=== PATIENT | female | born 1985 | race Caucasian/White ===

== ENCOUNTER 2016-07-05 06:41 | Inpatient (IN) | payer BC ==
[2016-07-05] MEDS ORDERED: OBEPIDURAL* 250 ML ONE (15:53)
[2016-07-05 15:56] LABS: Hematocrit 36 % (35-47); Hemoglobin 11.7 g/dl (12.0-16.0); Mean Corpuscular HGB Conc 33 g/dl (31-36); Mean Corpuscular Hemoglobin 28 pg (27-31); Mean Corpuscular Volume 85 fL (80-97); Mean Platelet Volume 10 um3 (7.4-10.4); Red Blood Count 4.21 10^6/ul (4.0-5.4); Red Cell Distribution Width 14 % (10.5-15); White Blood Count 16.4 10^3/ul (3.5-10.8)
[2016-07-05] MEDS ORDERED: Famotidine TAB* 20 MG PO PRN (16:58)
[2016-07-05] MEDS ORDERED: Sodium Citrate/Citric Acid* 15 ML UDC PO PRN (16:58)
[2016-07-05] MEDS ORDERED: Phenylephrine IV* 40 MCG/ML 10 ML SYRINGE IV PUSH PRN ×2 (16:58)
[2016-07-05] MEDS ORDERED: OBEPIDURAL* 250 ML EPIDURAL SCH (17:00)
[2016-07-05] MEDS ORDERED: Vancomycin(*) 1,000 MG in NS 0.9% 250 ML* 250 ML IVPB ONE (19:54)
[2016-07-05] MEDS ORDERED: Gentamicin ADULT (*) 40 MG/ML VIAL IVPB SCH (20:00)
[2016-07-05] MEDS ORDERED: NS 0.9% 100 ML* 100 ML ONE (20:06)
[2016-07-05] MEDS ORDERED: Lidocaine 2% PF* 10 ML AMP ONE ×2 (20:06→20:49)
[2016-07-05] MEDS ORDERED: Gentamicin ADULT (*) 110 MG in NS 0.9% 100 ML* 100 ML IVPB ONE (20:15)
[2016-07-05] MEDS ORDERED: fentaNYL* 50 MCG/ML 2 ML VIAL (100 MCG VIAL) ONE (20:42)
[2016-07-05] MEDS ORDERED: Lidocaine 2% PF * 5 ML VIAL ONE (20:42)
[2016-07-05] MEDS ORDERED: OXYTOCIN* 10 UNITS/ML 1 ML VIAL ONE ×2 (20:54→20:55)
[2016-07-05] MEDS ORDERED: Ondansetron INJ* 2 MG/ML VIAL ONE (21:07)
[2016-07-05] MEDS ORDERED: Morphine PF AMP (0.5MG/ML)* 5 MG/10 ML AMP ONE (21:07)
[2016-07-05] MEDS ORDERED: Ondansetron INJ* 2 MG/ML VIAL IV PRN ×2 (21:15→21:21)
[2016-07-05] MEDS ORDERED: HYDROcodone/ACETAMIN 5-325 MG* 1 TAB PO PRN (21:15)
[2016-07-05] MEDS ORDERED: DiMENhydriNATE IV* 50 MG/ML VIAL IV PUSH PRN ×2 (21:15→21:21)
[2016-07-05] MEDS ORDERED: oxyCODONE TAB* 5 MG TAB PO PRN (21:15)
[2016-07-05] MEDS ORDERED: fentaNYL* 50 MCG/ML 2 ML VIAL (100 MCG VIAL) IV PRN (21:15)
[2016-07-05] MEDS ORDERED: Ketorolac INJ* 30 MG/ML 1 ML VIAL ONE (21:18)
[2016-07-05] MEDS ORDERED: Acetaminophen TAB* 325 MG PO PRN (21:21)
[2016-07-05] MEDS ORDERED: Naloxone* 0.4 MG/ML 1 ML VIAL IV PRN (21:21)
[2016-07-05] MEDS ORDERED: diPHENhydraMINE IV* 50 MG/ML 1 ml VIAL (BENADRYL) IV PRN (21:21)
[2016-07-05] MEDS ORDERED: oxyCODONE/Acetamin 5/325 MG* TAB PO PRN (21:21)
[2016-07-05] MEDS ORDERED: Naloxone* 2 MG in NS 0.9% 250 ML* 250 ML IV PRN (21:21)
[2016-07-05] MEDS ORDERED: Nalbuphine* 20 MG/ML 1 ML VIAL IV PRN (21:21)
[2016-07-05] MEDS ORDERED: Scopolamine 1.5 mg* PATCH TRANSDERM SCH (22:00)
[2016-07-05] MEDS ORDERED: Oxytocin in LR* 20 UNITS/1,000 ML BAG IVPB ONE (22:56)
[2016-07-05] MEDS: Cetirizine* 10 MG TAB PO SCH (23:11)
[2016-07-05] MEDS: Montelukast Sodium TAB* 10 MG PO SCH (23:11)
[2016-07-05] MEDS ORDERED: Dibucaine 1% 28.35 GM TUBE PR PRN (23:13)
[2016-07-05] MEDS ORDERED: Glycerin ADULT SUPP PR PRN (23:13)
[2016-07-05] MEDS ORDERED: Witch Hazel PAD* JAR TOPICAL PRN (23:13)
[2016-07-05] MEDS ORDERED: Oxytocin in LR* 20 UNITS/1,000 ML BAG IVPB SCH (23:45)
[2016-07-06] MEDS: Ketorolac INJ* 30 MG/ML 1 ML VIAL IV PRN ×3 (03:04→16:19)
[2016-07-06] MEDS: HYDROcodone/ACETAMIN 5-325 MG* 1 TAB PO PRN ×4 (05:53→21:33)
[2016-07-06 07:40] LABS: Hematocrit 27 % (35-47); Hemoglobin 8.8 g/dl (12.0-16.0); Mean Corpuscular HGB Conc 33 g/dl (31-36); Mean Corpuscular Hemoglobin 28 pg (27-31); Mean Corpuscular Volume 85 fL (80-97); Mean Platelet Volume 9 um3 (7.4-10.4); Red Blood Count 3.16 10^6/ul (4.0-5.4); Red Cell Distribution Width 14 % (10.5-15); White Blood Count 18.4 10^3/ul (3.5-10.8)
[2016-07-06] MEDS: Docusate CAP* 100 MG PO SCH ×3 (09:33→21:33)
[2016-07-06] MEDS: Simethicone TAB* 80 MG TAB.CHEW PO SCH ×4 (09:33→21:33)
[2016-07-06] MEDS: Ferrous Gluconate TAB* 324 MG TAB PO SCH ×2 (09:33→21:33)
--- NOTE | 2016-07-06 11:05 | OP ---
DATE OF OPERATION: 07/05/16 - ROOM #101 DATE OF : 85 SURGEON: Alondra Ricardo MD TRANSPORTATION OPERATIONS MANAGER: Trudy Dolan CM ANESTHESIOLOGIST: Luis Whittaker MD ANESTHESIA: Epidural PRE-OP DIAGNOSIS: Intrauterine at 41-1/7 weeks, category II heart tracing, remote from delivery. POST-OP DIAGNOSES: Intrauterine at 41-1/7 weeks, category II heart tracing, remote from delivery; delivered. OPERATIVE PROCEDURE: Primary low transverse section. ESTIMATED BLOOD LOSS: 500 cc. URINE OUTPUT: 500 cc. FLUIDS: 1700 cc of crystalloids. FINDINGS: Revealed a vertex male , with Apgars 9 at one minute and 9 at five minutes. Weight was 7 pounds and 3 ounces. No meconium. No nuchal cord, three- vessel cord, placenta intact, manual extraction. Normal 3-vessel cord, normal- appearing tubes and ovaries bilaterally, normal uterine cavity. COMPLICATIONS: None apparent. DISPOSITION: Stable to recovery room. DESCRIPTION OF PROCEDURE: The patient underwent re-dosing of epidural anesthesia. The abdomen was prepped and draped in a sterile standard fashion. The patient was identified with universal protocol for correct procedure, position, and patient. Anesthesia was tested repetitively until appropriate level was obtained. An incision was made two fingerbreadths above the pubic symphysis. This was carried down through to the fascia. The fascia was scored in the midline. The fascial incision was extended laterally and superiorly using curved Connor scissors. The fascia was from the rectus muscle bluntly and sharply, superiorly and inferiorly. The peritoneum was then entered bluntly. The peritoneal incision was extended bluntly. A bladder blade was inserted. Lower uterine segment was identified. An Allis was used to tent up on the lower uterine segment and incision was made with a scalpel. This was carried down through the membranes. The incision was then extended laterally and superiorly using bandage scissors. The infant was delivered, noted to be MICKEY. Head was delivered, anterior, then posterior shoulder delivered. Baby was vigorous, crying. Cord was clamped after a slight delay and then the cord was cut. Infant was handed off to awaiting metal extrusion supervisor. The appropriate cord blood was obtained. Placenta was then manually extracted. Noted to be intact 3-vessel cord. Uterus was exteriorized. Uterine cavity was wiped clean, noted to be free of any placental membranes or tissue. The uterine incision itself was clamped with broad Allis's and then reapproximated in 2 layers, first layer a running locked 0 Vicryl; second layer, running imbricated 0 Vicryl. The tubes and ovaries noted to have normal appearance. The uterus was returned intra-abdominally, colic gutters were lavaged. Hemostasis was assured of the hysterotomy site, the colic gutters after lavage. The peritoneum was clamped with Renee's and the peritoneum was then reapproximated using 3-0 Vicryl in a running fashion. Subfascial area was visualized, noted to be hemostatic and the fascia itself was reapproximated using 0 Vicryl x2 in a running fashion. Subcu was lavaged. Hemostasis assured. The midline was reapproximated of Camper's fascia and the skin itself was then reapproximated using 4-0 Monocryl in a subcuticular fashion. Mastisol and Steri's were applied. All sponge, instrument, and blade counts were correct throughout the case. The patient tolerated the procedure well and went to recovery room in stable condition. [id number]/[facility] #: [id number] HUMBERTO
[2016-07-06] MEDS: Montelukast Sodium TAB* 10 MG PO SCH (12:27)
[2016-07-06] MEDS ORDERED: Acetaminophen TAB* 325 MG PO PRN (13:21)
[2016-07-06] MEDS ORDERED: oxyCODONE/Acetamin 5/325 MG* TAB PO PRN ×2 (13:21)
[2016-07-06] MEDS: Cetirizine* 10 MG TAB PO SCH (21:33)
[2016-07-06] MEDS: Ibuprofen TAB* 600 MG PO PRN (21:34)
[2016-07-07] MEDS: HYDROcodone/ACETAMIN 5-325 MG* 1 TAB PO PRN ×6 (01:33→22:06)
[2016-07-07] MEDS: Ibuprofen TAB* 600 MG PO PRN ×4 (04:17→22:05)
[2016-07-07] MEDS: Ferrous Gluconate TAB* 324 MG TAB PO SCH ×2 (09:12→22:05)
[2016-07-07] MEDS: Docusate CAP* 100 MG PO SCH ×3 (09:12→22:05)
[2016-07-07] MEDS: Simethicone TAB* 80 MG TAB.CHEW PO SCH ×4 (09:12→22:05)
[2016-07-07] MEDS: Montelukast Sodium TAB* 10 MG PO SCH (09:16)
[2016-07-07] MEDS ORDERED: Cetirizine* 10 MG TAB PO SCH (23:00)
[2016-07-08] MEDS: HYDROcodone/ACETAMIN 5-325 MG* 1 TAB PO PRN ×2 (02:08→07:59)
[2016-07-08] MEDS: Ibuprofen TAB* 600 MG PO PRN ×2 (04:02→09:54)
[2016-07-08 08:02] VITALS: BP 121/74
[2016-07-08] MEDS: Montelukast Sodium TAB* 10 MG PO SCH (09:44)
[2016-07-08] MEDS: Ferrous Gluconate TAB* 324 MG TAB PO SCH (09:54)
[2016-07-08] MEDS: Docusate CAP* 100 MG PO SCH (09:54)
[2016-07-08] MEDS: Simethicone TAB* 80 MG TAB.CHEW PO SCH (09:55)
== END 2016-07-08 11:23 | disposition home or self-care (01) | DRG 540 ==
LOC: MCHOBOUT 06:41 → MCHOB 07:02
PROVIDERS: ADMIT Midwife; ATTEND Obstetrics & Gynecology
PROC: 10D00Z1 Extraction of Products of Conception, Low, Open Approach (ICD-10-PCS; principal; 2016-07-05 20:13)
DX: O76 Abnormality in fetal heart rate and rhythm complicating labor and delivery (principal); F32.9 Major depressive disorder, single episode, unspecified; O48.0 Post-term pregnancy; O99.344 Other mental disorders complicating childbirth; O90.81 Anemia of the puerperium; D64.9 Anemia, unspecified; Z3A.41 41 weeks gestation of pregnancy; Z37.0 Single live birth
CPT/HCPCS: 36415; 85025; 85027; 86850; 86900; 86901; A9270-GY; J1580; J1885; J2001; J2405; J2590; J3010; J3370

== ENCOUNTER 2016-07-13 09:20 | Emergency (ER) | payer BC ==
[2016-07-13 09:32] VITALS: BP 136/84
[2016-07-13] MEDS ORDERED: NS 0.9% 1000 ML* 2,000 ML IV ONE (09:52)
--- NOTE | 2016-07-13 15:48 | ED ---
Jun Brown Rebecca, scribed for Marcial Morocho MD on 07/13/16 at 0935 . ED Suture/Wound Check - HPI Summary HPI Summary: Pt is a 30 y/o F who presents to ED c/o pain and bleeding at the incision site of a recent . Pt had an unplanned 8 days ago (07/05/2016) without complications and was in the hospital 3 days post-op. Reports that last night she was getting in and out of bed often to check on her and that the wound began bleeding last night. Associated pain characterized as burning and is currently ranked 10/10, worse that it was post-op. Is treating pain with ice and Ibuprofen since prescribed [place] gave her HAs. Sx aggravated by ambulation, alleviated by Ibuprofen. Additionally c/o pus-like drainage ( "milky-red") from the incision, as well as rhinorrhea, cough (productive while in the shower) and wheezing since yesterday. Denies calf pain, edema, vomiting, constipation, sore throat, lightheadedness, dizziness or back pain. Wound was closed with dissolvable stitches and Steri-Strips. Was evaluated by ENGRAVER APPRENTICE DECORATIVE 3 days ago and the wound looked good. Allergy to Epinephrine is the only one that causes anaphylactic shock. - History Of Current Complaint Chief Complaint: EDOBProblems Stated Complaint: 8DAYS AGO-incision site BLEEDING Time Seen by Provider: 07/13/16 09:30 Hx Obtained From: Patient Onset/Duration: Sudden Onset, Lasting Days - 1 day Surgical Site: Suprapubic Severity: Severe Pain Intensity: 10 Pain Scale Used: 0-10 Numeric Procedure Type: Surgery Date: 07/05/16 - Allergies/Home Medications Allergies/Adverse Reactions: Allergies Allergy/AdvReac Type Severity Reaction Status Date / Time Amoxicillin Allergy FACIAL Verified 07/13/16 11:59 SWELLING AND RASH Benzoyl Peroxide [From Duac] Allergy Hives Verified 07/13/16 11:59 Cephalexin [From Keflex] Allergy Rash Verified 07/13/16 11:59 Clindamycin [From Duac] Allergy Hives Verified 07/13/16 11:59 Epinephrine Allergy Difficulty Verified 07/13/16 11:59 Breathing/Wheezing Methylparaben [From Duac] Allergy Hives Verified 07/13/16 11:59 Nickel Allergy Rash Verified 07/13/16 11:59 PMH/Surg Hx/FS Hx/Imm Hx Endocrine/Hematology History: Denies: Hx Diabetes Cardiovascular History: Denies: Hx Hypertension, Hx Pacemaker/ICD Respiratory History: Reports: Hx Asthma History: Denies: Hx Renal Disease Sensory History: Denies: Hx Hearing Aid Psychiatric History: Reports: Hx Anxiety, Hx Depression Denies: Hx Panic Disorder - Surgical History Surgery Procedure, Year, and Place: ORAL - IMPACTED TOOTH Infectious Disease History: No Infectious Disease History: Denies: Traveled Outside the [place] in Last 30 Days - Family History Known Family History: Positive: Hypertension, Other - HLD, anemia - Social History Alcohol Use: None Substance Use Type: Reports: None Smoking Status (MU): Never Smoked Tobacco Review of Systems Positive: Nasal Discharge. Negative: Sore Throat Positive: Cough, Other - Wheezing Positive: Other - Denies constipation. Negative: Vomiting Negative: Arthralgia - Denies calf pain and back pain, Edema Positive: Other - Bleeding, drianage and associated pain from wound Neurological: Other - Denies lightheadedness, dizziness All Other Systems Reviewed And Are Negative: Yes Physical Exam - Summary Physical Exam Summary: The patient is well-nourished in no acute distress and in no acute pain. The skin is warm and dry and skin color reflects adequate perfusion. HEENT: The head is normocephalic and atraumatic. The pupils are equal and reactive. The conjunctivae are clear and without drainage. Nares are patent and without drainage. Mouth reveals moist mucous membranes and the throat is without erythema and exudate. The external ears are intact. The ear canals are patent and without drainage. The tympanic membranes are intact. Neck is supple with full range of motion and non-tender. There are no carotid bruits. There is no neck vein distension. Respiratory: Chest is non-tender. Lungs are clear to auscultation and breath sounds are symmetrical and equal. Cardiovascular: Hear is regular rate and rhythm. There is no murmur or rub auscultated. There is no peripheral edema and pulses are symmetrical and equal. Abdomen: The abdomen is non-tender. There are normal bowel sounds heard in all four quadrants and there is no organomegaly palpated. No CVA tenderness. Belly soft above the incision. Around the incision is erythematous and warm and there appears to be a well-defined collection of fluid. There is a dehiscence of the wound in the center which appears to be sanguineous purulent with drainage. Musculoskeletal: There is no back pain noted. Extremities are non-tender with full range of motion. There is good capillary refill. There is no peripheral edema or calf tenderness elicited. Neurological: Patient is alert and oriented to person, place and time. The patient has symmetrical motor strength in all four extremities. Psychiatric: The patient has an appropriate affect and does not exhibit any anxiety or depression. Triage Information Reviewed: Yes Vital Signs On Initial Exam: Initial Vitals Temp Pulse Resp BP Pulse Ox 97.9 F 102 16 136/84 100 07/13/16 09:30 07/13/16 09:30 07/13/16 09:30 07/13/16 09:30 07/13/16 09:30 Vital Signs Reviewed: Yes Diagnostics - Vital Signs Vital Signs Temp Pulse Resp BP Pulse Ox 07/13/16 09:30 97.9 F 102 16 136/84 100 - Laboratory Lab Statement: Any lab studies that have been ordered have been reviewed, and results considered in the medical decision making process. Course/Dx - Course Assessment/Plan: Pt is a 30 y/o F who presents to ED c/o wound bleeding, pain and drianage as well as rhinorrhea, cough and wheezing for 1 day. performed 8 days ago without complications. Denies calf pain, edema, vomiting, constipation, sore throat, lightheadedness, dizziness or back pain. Consult with Dr. King who advised that pt be evaluated by Labor and Delivery at [facility]. Pt will be d/c with an advisement to be seen by Labor and Delivery. - Differential Diagnoses Differential Diagnoses: Abscess, Cellulitis - Clinical Impression Provider Diagnoses: Wound dehiscence - Physician Notifications Discussed Care Of Patient With: Dr. King who advised that pt be sent to Labor and Delivery. Time Discussed With Above Provider: 10:01 Discharge - Discharge Plan Condition: Stable Disposition: HOME Discharge Disposition Comment: Advised to be evaluated by labor and delivery unit upon d/c from ED. Patient Education Materials: Wound Dehiscence (ED) Referrals: Abbey Mehta MD [Primary Care Provider] - 3 Days Additional Instructions: Upon discharge from ED, pt is advised to be further evaluated by Labor and Delivery unit of [facility]. The documentation as recorded by the Jun hammonds Rebecca accurately reflects the service I personally performed and the decisions made by , Marcial Morocho MD.
== END 2016-07-13 10:20 | disposition home or self-care (01) ==
LOC: ED 09:20
DX: O90.0 Disruption of cesarean delivery wound (principal); L76.22 Postprocedural hemorrhage of skin and subcutaneous tissue following other procedure; R05 Cough; J34.89 Other specified disorders of nose and nasal sinuses
CPT/HCPCS: 87070; 87205; 99282

== ENCOUNTER 2016-07-13 11:12 | Observation (INO) | payer BC ==
[2016-07-13] MEDS ORDERED: Vancomycin per Pharmacy* NOTE FOLLOW UP PRN (13:26)
[2016-07-13] MEDS ORDERED: Vancomycin(*) 1,250 MG in NS 0.9% 250 ML* 250 ML IVPB ONE (14:00)
[2016-07-13] MEDS ORDERED: Acetaminophen TAB* 325 MG PO PRN (15:06)
[2016-07-13 15:27] LABS: EGFR African American 142.7 (>60)
[2016-07-13] MEDS: Ibuprofen TAB* 600 MG PO PRN ×2 (16:01→22:02)
--- NOTE | 2016-07-13 19:24 | HP ---
HISTORY AND PHYSICAL FOR OBSERVATION ADMISSION: DATE OF ADMISSION: 07/13/16 HISTORY OF PRESENT ILLNESS: Ms. Smith is a 30-year-old who is day 8 from a section on 07/05/16 for a of 41 weeks' estimated gestational age and indication of nonreassuring monitoring. She presented today with complaints of a bloody discharge from her section wound. She was initially at the emergency room which confirmed a subcutaneous hematoma and superficial wound separation. The patient was then evaluated by me at Labor and Delivery. PAST MEDICAL HISTORY: Asthma, depression, and anxiety. PAST SURGICAL HISTORY: section on 07/05/16. MEDICATIONS: At home, she was taking [id number] ibuprofen. ALLERGIES: LATEX, AMOXICILLIN, KEFLEX, and DUAC. REVIEW OF SYSTEMS: The patient denied any fever or chills. No nausea, vomiting , or diarrhea. No urinary signs or symptoms. She denied chest pain, shortness of breath, and no abdominal pain. PHYSICAL EXAMINATION GENERAL: The patient was alert, awake, and oriented x3. VITAL SIGNS: Temperature of 98.1, pulse of 97, respiratory rate of 18, pulse ox of 96% to 98% on room air, blood pressure was 140/76. LUNGS: Clear to auscultation bilaterally. HEART: Showed a regular rate and rhythm with no abnormal heart sounds. ABDOMEN: Soft, nondistended, nontender with normoactive bowel sounds. There is superficial dehiscence of the section scar. The fascia is intact. The right half of the wound opened during inspection. There was a small amount of serosanguineous fluid and a clot within the wound. I debrided the wound until good granulation tissue surfaced and packed the wound with iodoform packing and covered it with a moistened 4x4 abdominal pad and tape. Prior to covering the wound, she was also noted to have surrounding erythema around the entire scar. It was tender to touch and hot to touch and inflamed consistent with cellulitis. PELVIC EXAM: Deferred. LABORATORY DATA: complete blood cell count.and Wound culture are pending. IMPRESSION: A 30-year-old post section, postop day #8, with a superficial scar wound dehiscence and wound superficial cellulitis with MULTIPLE ANTIBIOTIC allergies who is currently breast-feeding. PLAN: The patient is admitted for observation. She is to receive IV hydration , IV vancomycin. I am also going to have the patient continue breast- feeding while she is on IV vancomycin until we can resolve antibiotic choice at discharge so she may continue to breastfeed as well. [id number]/[facility] #: [id number] [place]UM[place]ERTO
[2016-07-13] MEDS: Vancomycin(*) 1,000 MG in NS 0.9% 250 ML* 250 ML IVPB SCH (22:03)
[2016-07-14] MEDS: Vancomycin(*) 1,000 MG in NS 0.9% 250 ML* 250 ML IVPB SCH ×3 (05:53→21:42)
[2016-07-14] MEDS: Ibuprofen TAB* 600 MG PO PRN ×3 (09:11→23:29)
[2016-07-14] MEDS ORDERED: HYDROmorphone INJ* 1 MG/ML CARPUJECT SYRINGE ONE (11:48)
[2016-07-15] MEDS ORDERED: Vancomycin Trough Check NOTE FOLLOW UP ONE (05:30)
[2016-07-15] MEDS: Vancomycin(*) 1,000 MG in NS 0.9% 250 ML* 250 ML IVPB SCH (06:07)
[2016-07-15] MEDS: Ibuprofen TAB* 600 MG PO PRN ×2 (06:07→12:30)
[2016-07-15 11:58] VITALS: BP 140/89
--- NOTE | 2016-07-15 20:43 | CONS ---
CONSULTATION REPORT: DATE OF CONSULT: 07/15/16 REQUESTING PHYSICIAN: Alondra Ricardo MD CONSULTING SERVICE: Infectious Disease. REASON FOR CONSULTATION: Incisional hematoma. IMPRESSION: 1. Ten days status post with a hematoma on the center right aspect of the low transverse incision that had failed to heal and she is having bloody drainage that was opened up, some necrotic tissue was debrided. Wound culture Gram stain showed 4+ neutrophils, no organisms, no cultures, and no growth. There is no erythema. At this point, I do not think there is an infection, I suspect the inflammation was initially present was all due to hematoma. 2. ALLERGY TO AMOXICILLIN, CAUSED ANAPHYLAXIS. KEFLEX AND CLINDAMYCIN, CAUSED RASH. 3. Still . RECOMMENDATIONS: Agree with stopping antibiotics. Follow the wound closely with wound care treatment. I discussed with her that if there was any return of redness or worsening drainage other than serous fluid, we would consider an oral antibiotic like Bactrim, which would be safe for as it is used in babies antibiotic therapy. HISTORY OF PRESENT ILLNESS: This is a 30-year-old woman 10 days status post C- section, which she tolerated well, but she always felt in the medial aspect of the incision, there was a bulge above that and then she began to get low appetite and chills without fever and the medial/right aspect of the incision would not heal; however, on the left side, it totally healed up. She developed a little bit bloody drainage, came to the ER on the . She had a culture taken as above. She was seen by Dr. King who opened up part of the incision and cleaned some necrotic tissue out. She has had wound VAC in place there and there is minimal drainage at this point. She has been afebrile here. Baby is still , both are doing well. She had a creatinine of 0.6 and vancomycin trough of 14. PAST MEDICAL HISTORY: 1. Status post , June 2016. 2. Asthma. 3. Depression. 4. Anxiety. MEDICATIONS: 1. Tylenol. 2. Ibuprofen. 3. Vancomycin 1 g every 8 hours. ALLERGIES: LATEX and AMOXICILLIN CAUSED ANAPHYLAXIS. KEFLEX AND CLINDAMYCIN CAUSED RASH. FAMILY HISTORY: No recurrent infections. SOCIAL HISTORY: She lives [place] with her and son. She has no travel. No sick contacts. REVIEW OF SYSTEMS: All negative except as noted above. PHYSICAL EXAM: Vital Signs: Temperature 37, heart rate 70, respiratory rate 16 , blood pressure 140/89, and O2 sat 98% on room air. General: She is awake, in no acute distress. HEENT: There is no conjunctival hemorrhage. Oropharynx without lesions. Neck: Neck is supple without nuchal rigidity. Lymph Nodes: There is no cervical, supraclavicular, inguinal, axillary, or epitrochlear lymphadenopathy. Heart: Regular rate and rhythm without murmurs, rubs, or gallops. Lungs: Clear to auscultation bilaterally. Abdomen: Soft, nontender , and nondistended. There is a low transverse incision, left lateral aspect is healed. The midright component of it is opened. There is no erythema. There is no serous drainage. There is packing, which is dry. There is healthy-appearing tissue at the end of the margins of the incision. Skin: There is no rash or splinter hemorrhages. Musculoskeletal: There is no joint synovitis. DIAGNOSTIC STUDIES/LAB DATA: Vancomycin trough of 14. Creatinine of 0.6. Please see impressions and recommendations above, which I have discussed with Dr. Ricardo. [id number]/[facility] #: [id number] [facility]
--- NOTE | 2017-03-27 00:06 | DS ---
DISCHARGE SUMMARY: DATE OF ADMISSION: 07/13/16 DATE OF DISCHARGE: 07/15/16 HISTORY OF PRESENT ILLNESS: The patient is a 31-year-old who was admitted 8 days from sect ion with bloody discharge from wound. The patient underwent opening of the wound with evac uation of clot from the wound and was placed on broad-spectrum antibiotics, which included vancomyci n 1 g q.8. The patient had a consultation with Infectious Disease with Dr. Ruano who evaluated t he wound and agreed with stopping antibiotics on hospital day #1 as there was no evidence of wound i nfection. The wound culture showed no organisms and that there was no growth on the culture that wa s performed of the wound and the patient by hospital day #2 was doing much better. The wound was no sid to be opened with clear drainage and was to follow up in the wound clinic for ongoing management at this point of an open wound. She was to follow up on 07/23/16 with an appointment also in the o [facility]. She was given discharge instructions and verbalized understanding of those discharge instruc tions and was discharged in stable condition. [id number]/[facility] #: [id number]
== END 2016-07-15 15:35 | disposition home or self-care (01) ==
LOC: SSU 11:12
PROVIDERS: ADMIT Obstetrics & Gynecology; ATTEND Obstetrics & Gynecology
DX: O90.0 Disruption of cesarean delivery wound (principal); O86.0 Infection of obstetric surgical wound; F32.9 Major depressive disorder, single episode, unspecified; F41.9 Anxiety disorder, unspecified; Z88.0 Allergy status to penicillin; Z88.1 Allergy status to other antibiotic agents; Z88.8 Allergy status to other drugs, medicaments and biological substances
CPT/HCPCS: 36415; 80202; 82565; 84520; 85025; 96361; 96365; 96366; 96375; 99213; A9270-GY; G0378; G0463; J1170; J3370